=== PATIENT | male | born 1950 | race African-American/Black ===

== ENCOUNTER 2021-05-17 13:07 | Inpatient (IN) ==
[2021-05-17 14:13] LABS: Basophils % 0.2 % (0.0-0.8); Eosinophils % 0.2 % (0.00-10.9); Hematocrit 30.4 VOL% (42.0-52.0); Hemoglobin 9.4 GM/DL (14.0-18.0); Immature Granulocytes % 2.1 %; Immature Granulocytes Absolute 0.09 #; Lymphocytes # 0.6 10*3/uL (1.4-4.0); Lymphocytes % 14.3 % (21.2-54.2); Mean Corpuscular HGB Conc 30.9 GM/DL (32-36); Mean Corpuscular Volume 88.9 FL (87-102); Mean Platelet Volume 10.2 FL (9.6-12.0); Monocytes % 4.7 % (1.7-12.7); NRBC # 0.22 10*3/uL; Neutrophils % 78.5 % (38.7-73.9); Platelet Count 97 T/CUMM (130-400); Red Blood Count 3.42 MC/CUMM (3.8-5.5); Red Cell Distribution Width 19.1 % (9.3-17.3); White Blood Count 4.3 T/CUMM (4-12)
[2021-05-17 14:21] LABS: ABG HCO3 25.2 MMOL/L (20-26); ABG Oxygen Saturation 94.9 % (95-100); ABG PCO2 39.3 MM HG (35-48); ABG PH 7.418 (7.35-7.45); ABG TCO2 23.3 MMOL/L (23-27)
[2021-05-17 14:37] LABS: Anisocytosis 1+; Hypochromasia 1+
[2021-05-17 14:38] LABS: Elliptocytes Few; Platelet Estimate Decreased; Polychromasia Few
[2021-05-17 14:53] LABS: Albumin 2.4 G/DL (3.4-5.0); Bilirubin,Total 0.8 MG/DL (0.2-1.0); Calcium 8.3 MG/DL (8.5-10.1); Osmolality,Calculated 289.7 MOS/KG (273-304); Potassium 5.9 MMOL/L (3.5-5.1); Total Protein 6.1 G/DL (6.4-8.2)
[2021-05-17] MEDS ORDERED: SODIUM CHLORIDE 0.9% 500 ML IV STA (15:17)
[2021-05-17 15:28] LABS: INR 1.2
[2021-05-17] MEDS ORDERED: cefTRIAXone 1,000 MG in SODIUM CHLORIDE 0.9% 100 ML IV STA (15:35)
[2021-05-17] MEDS ORDERED: INSULIN REGULAR 10 UNIT, CALCIUM GLUCONATE 1,000 MG in DEXTROSE 10% 250 ML IV ONE (16:19)
[2021-05-17] MEDS ORDERED: ONDANSETRON 4 MG/2 ML VIAL IV PRN (16:41)
[2021-05-17] MEDS ORDERED: GLUCAGON 1 MG VIAL IM PRN (16:41)
[2021-05-17] MEDS ORDERED: ACETAMINOPHEN 325 MG TABLET PO PRN (16:41)
[2021-05-17] MEDS ORDERED: DEXTROSE 50% 25 GM/50 ML VIAL IV PRN (16:41)
[2021-05-17] MEDS ORDERED: TEMAZEPAM 15 MG CAPSULE PO PRN (16:52)
[2021-05-17] MEDS ORDERED: PANTOPRAZOLE 40 MG VIAL IV STA (16:57)
[2021-05-17 17:30] LABS: Bilirubin,Urine Negative (Negative); Blood, Urine Negative (Negative); Glucose,Urine (UA) Negative (Negative); Hyaline Casts,Urine 3 /LPF (0-3); Ketones,Urine Negative (Negative); Mucus,Urine Occasional /LPF (Occasional); Nitrite,Urine Negative (Negative); Protein,Urine 30 MG/DL; Squamous Epithelial Cell,Urine Occasional /HPF (0-10); Urine Appearance CLEAR (Clear); Urine Color Yellow (Yellow); Urine Specific Gravity 1.008 (1.001-1.035); Urine Urobilinogen < 2.0 EU/DL (0.2-1.0)
[2021-05-17] MEDS: methylPREDNISolone SOD SUC 40 MG/1 ML VIAL IV SCH (18:28)
[2021-05-17] MEDS: ALBUTEROL/IPRATROPIUM 3 ML NEB RESP TX SCH (19:00)
[2021-05-17 20:40] LABS: Hematocrit 29.7 VOL% (42.0-52.0); Hemoglobin 9.1 GM/DL (14.0-18.0)
[2021-05-17] MEDS ORDERED: ATORVASTATIN 40 MG TABLET PO SCH (21:00)
[2021-05-17] MEDS: LATANOPROST 0.005% OPH SOLN 2.5 ML BOTTLE BOTH EYES SCH (21:40)
[2021-05-17] MEDS: cycloSPORINE OPH EMUL 1 VIAL BOTH EYES SCH (21:40)
[2021-05-17] MEDS: DORZOLAMIDE 2% OPH SOLN 10 ML BOTTLE BOTH EYES SCH (21:40)
[2021-05-17] MEDS: APIXABAN 5 MG TABLET PO SCH (21:42)
[2021-05-17] MEDS: GABAPENTIN 100 MG CAPSULE PO SCH (21:42)
[2021-05-17] MEDS: carvediloL 6.25 MG TABLET PO SCH (21:42)
[2021-05-18] MEDS: ALBUTEROL/IPRATROPIUM 3 ML NEB RESP TX SCH ×4 (00:53→20:08)
[2021-05-18 01:59] LABS: Basophils % 0.3 % (0.0-0.8); Hematocrit 27.9 VOL% (42.0-52.0); Hemoglobin 8.7 GM/DL (14.0-18.0); Immature Granulocytes % 1.1 %; Immature Granulocytes Absolute 0.04 #; Lymphocytes # 0.5 10*3/uL (1.4-4.0); Lymphocytes % 14.2 % (21.2-54.2); Mean Corpuscular HGB Conc 31.2 GM/DL (32-36); Mean Corpuscular Volume 89.1 FL (87-102); Mean Platelet Volume 11.1 FL (9.6-12.0); Monocytes % 2.8 % (1.7-12.7); NRBC # 0.05 10*3/uL; Neutrophils % 81.6 % (38.7-73.9); Red Blood Count 3.13 MC/CUMM (3.8-5.5); Red Cell Distribution Width 18.7 % (9.3-17.3); White Blood Count 3.5 T/CUMM (4-12)
[2021-05-18 02:08] LABS: Platelet Count 88 T/CUMM (130-400)
[2021-05-18 02:11] LABS: Albumin 2.2 G/DL (3.4-5.0); Bilirubin,Total 0.9 MG/DL (0.2-1.0); Calcium 8.3 MG/DL (8.5-10.1); Osmolality,Calculated 295.4 MOS/KG (273-304); Potassium 4.6 MMOL/L (3.5-5.1); Total Protein 5.6 G/DL (6.4-8.2)
[2021-05-18] MEDS: methylPREDNISolone SOD SUC 40 MG/1 ML VIAL IV SCH ×3 (02:50→16:32)
[2021-05-18 07:49] LABS: Hematocrit 30.8 VOL% (42.0-52.0); Hemoglobin 9.4 GM/DL (14.0-18.0)
[2021-05-18] MEDS: LEFLUNOMIDE 10 MG TABLET PO SCH (09:02)
[2021-05-18] MEDS: DILTIAZEM CD 240 MG CAPSULE PO SCH (09:02)
[2021-05-18] MEDS: GABAPENTIN 100 MG CAPSULE PO SCH ×3 (09:02→22:48)
[2021-05-18] MEDS: DORZOLAMIDE 2% OPH SOLN 10 ML BOTTLE BOTH EYES SCH ×2 (09:03→22:49)
[2021-05-18] MEDS: SODIUM CHLORIDE 0.9% 1,000 ML IV SCH ×2 (09:03→22:50)
[2021-05-18] MEDS: PANTOPRAZOLE 40 MG TABLET PO SCH (09:03)
[2021-05-18] MEDS: carvediloL 6.25 MG TABLET PO SCH ×2 (09:03→22:48)
[2021-05-18] MEDS: APIXABAN 5 MG TABLET PO SCH ×2 (09:03→22:48)
[2021-05-18] MEDS: cycloSPORINE OPH EMUL 1 VIAL BOTH EYES SCH ×2 (09:10→22:49)
[2021-05-18 10:01] LABS: % Iron Saturation 43.8 % (18-50); Thyroid Stimulating Hormone 0.267 uIU/ml (0.358-3.74)
[2021-05-18 10:10] LABS: Folate 7.34 NG/ML (5.38-24.0); Vitamin B12 > 2000 PG/ML (211-911)
[2021-05-18] MEDS ORDERED: CYANOCOBALAMIN 1000 MCG/1 ML VIAL IM ONE (13:00)
[2021-05-18 13:44] LABS: Hematocrit 31.1 VOL% (42.0-52.0); Hemoglobin 9.6 GM/DL (14.0-18.0)
[2021-05-18] MEDS: cefTRIAXone 1,000 MG in SODIUM CHLORIDE 0.9% 100 ML IV SCH (16:32)
[2021-05-18] MEDS: LATANOPROST 0.005% OPH SOLN 2.5 ML BOTTLE BOTH EYES SCH (22:48)
[2021-05-18] MEDS: MENTHOL/ZINC OXIDE OINT 71 GM JAR TOP SCH (22:49)
[2021-05-18] MEDS: MONTELUKAST 10 MG TABLET PO SCH (22:50)
[2021-05-18] MEDS: ALPRAZolam 0.5 MG TABLET PO PRN (22:54)
[2021-05-19 01:07] LABS: Bilirubin,Urine Negative (Negative); Blood, Urine Negative (Negative); Glucose,Urine (UA) 50 mg/dL (Negative); Hyaline Casts,Urine 1 /LPF (0-3); Ketones,Urine Negative (Negative); Mucus,Urine Occasional /LPF (Occasional); Nitrite,Urine Negative (Negative); Protein,Urine Negative; RBC,Urine <1 /HPF (0-4); Uric Acid Crystals,Urine Occasional /HPF (<1); Urine Appearance CLOUDY (Clear); Urine Color Yellow (Yellow); Urine Specific Gravity 1.017 (1.001-1.035); Urine Urobilinogen < 2.0 EU/DL (0.2-1.0)
[2021-05-19] MEDS: ALBUTEROL/IPRATROPIUM 3 ML NEB RESP TX SCH ×4 (01:35→21:00)
[2021-05-19] MEDS: methylPREDNISolone SOD SUC 40 MG/1 ML VIAL IV SCH ×2 (04:33→21:41)
[2021-05-19 05:42] LABS: Hematocrit 25.4 VOL% (42.0-52.0); Immature Granulocytes % 1.3 %; Immature Granulocytes Absolute 0.05 #; Lymphocytes # 0.5 10*3/uL (1.4-4.0); Lymphocytes % 12.6 % (21.2-54.2); Mean Corpuscular HGB Conc 31.5 GM/DL (32-36); Mean Corpuscular Volume 87.3 FL (87-102); Mean Platelet Volume 12.1 FL (9.6-12.0); Monocytes % 2.1 % (1.7-12.7); NRBC # 0.13 10*3/uL; Platelet Count 64 T/CUMM (130-400); Red Blood Count 2.91 MC/CUMM (3.8-5.5); Red Cell Distribution Width 18.3 % (9.3-17.3); White Blood Count 3.7 T/CUMM (4-12)
[2021-05-19 06:27] LABS: Band Neutrophils 6 % (0-10); Lymphocytes 12 % (20-55); Nucleated Red Blood Cells 2 (0-5); Segmented Neutrophils 77 % (50-85); Total Cells Counted 100
[2021-05-19 06:28] LABS: Hypochromasia 1+; Microcytosis 1+; Ovalocytes Few
[2021-05-19 06:29] LABS: Platelet Estimate Decreased
[2021-05-19 06:30] LABS: Bilirubin,Total 0.5 MG/DL (0.2-1.0); Calcium 8.2 MG/DL (8.5-10.1); Osmolality,Calculated 295.3 MOS/KG (273-304); Potassium 4.3 MMOL/L (3.5-5.1); Total Protein 5.1 G/DL (6.4-8.2)
[2021-05-19 06:36] LABS: Free T4 (Free Thyroxine) 0.62 NG/DL (0.76-1.46); Thyroid Stimulating Hormone 0.099 uIU/ml (0.358-3.74)
[2021-05-19 07:19] LABS: Hepatitis B Core IgM Quant < 0.05 Index; Hepatitis B Surface Ag Quant < 0.10 Index; Hepatitis B Surface Ag Result Non-Reactive (NonReactive); Hepatitis C Virus Ab Quant < 0.02 Index; Hepatitis C Virus Ab Result Non-Reactive (NonReactive)
[2021-05-19] MEDS ORDERED: AZITHROMYCIN 250 MG TABLET PO SCH (09:00)
[2021-05-19] MEDS ORDERED: ALBUTEROL 2.5 MG/3 ML NEB RESP TX ONE (09:30)
[2021-05-19] MEDS: PANTOPRAZOLE 40 MG TABLET PO SCH (09:48)
[2021-05-19] MEDS: LEFLUNOMIDE 10 MG TABLET PO SCH (09:48)
[2021-05-19] MEDS: carvediloL 6.25 MG TABLET PO SCH ×2 (09:48→21:35)
[2021-05-19] MEDS: APIXABAN 5 MG TABLET PO SCH ×2 (09:49→21:35)
[2021-05-19] MEDS: GABAPENTIN 100 MG CAPSULE PO SCH ×3 (09:49→21:35)
[2021-05-19] MEDS: DILTIAZEM CD 240 MG CAPSULE PO SCH (09:49)
[2021-05-19] MEDS: DORZOLAMIDE 2% OPH SOLN 10 ML BOTTLE BOTH EYES SCH ×2 (09:50→21:57)
[2021-05-19] MEDS: cycloSPORINE OPH EMUL 1 VIAL BOTH EYES SCH ×2 (09:50→21:35)
[2021-05-19] MEDS: FOLIC ACID 1 MG TABLET PO SCH (11:50)
[2021-05-19] MEDS: cefTRIAXone 1,000 MG in SODIUM CHLORIDE 0.9% 100 ML IV SCH ×2 (11:51→17:33)
[2021-05-19] MEDS: ALBUTEROL 0.4 MG/ML 30 ML/BOTTLE PO SCH ×2 (15:02→21:41)
[2021-05-19] MEDS: MENTHOL/ZINC OXIDE OINT 71 GM JAR TOP SCH ×2 (15:03→21:36)
[2021-05-19] MEDS: INSULIN REGULAR 100 UNIT/ML SUBCUT SCH ×2 (18:11→21:40)
[2021-05-19] MEDS: MONTELUKAST 10 MG TABLET PO SCH (21:35)
[2021-05-19] MEDS: LATANOPROST 0.005% OPH SOLN 2.5 ML BOTTLE BOTH EYES SCH (21:56)
[2021-05-20] MEDS: ALBUTEROL/IPRATROPIUM 3 ML NEB RESP TX SCH ×4 (00:34→19:43)
[2021-05-20 06:15] LABS: Hematocrit 25.4 VOL% (42.0-52.0); Hemoglobin 7.8 GM/DL (14.0-18.0); Immature Granulocytes % 1.8 %; Immature Granulocytes Absolute 0.08 #; Lymphocytes # 0.5 10*3/uL (1.4-4.0); Lymphocytes % 10.2 % (21.2-54.2); Mean Corpuscular HGB Conc 30.7 GM/DL (32-36); Mean Corpuscular Volume 89.4 FL (87-102); Mean Platelet Volume 11.5 FL (9.6-12.0); NRBC # 0.19 10*3/uL; Platelet Count 95 T/CUMM (130-400); Red Blood Count 2.84 MC/CUMM (3.8-5.5); Red Cell Distribution Width 18.5 % (9.3-17.3); White Blood Count 4.4 T/CUMM (4-12)
[2021-05-20 06:24] LABS: Bilirubin,Total 0.7 MG/DL (0.2-1.0); Calcium 7.9 MG/DL (8.5-10.1); Osmolality,Calculated 297.1 MOS/KG (273-304); Potassium 4.4 MMOL/L (3.5-5.1); Total Protein 5.2 G/DL (6.4-8.2)
[2021-05-20 06:25] LABS: Risk Ratio 3.28; VLDL Cholesterol 37.6 MG/DL
[2021-05-20] MEDS: LEVOTHYROXINE 50 MCG TABLET PO SCH (07:11)
[2021-05-20 08:55] LABS: Anisocytosis 1+; Band Neutrophils 15 % (0-10); Lymphocytes 6 % (20-55); Nucleated Red Blood Cells 9 (0-5); Platelet Estimate Decreased; Polychromasia Slight; Segmented Neutrophils 76 % (50-85); Tear Drop Cells Few; Total Cells Counted 100
[2021-05-20 08:56] LABS: Hypochromasia Slight; Macrocytosis 1+; Poikilocytosis Slight
[2021-05-20] MEDS: carvediloL 6.25 MG TABLET PO SCH ×2 (10:02→20:33)
[2021-05-20] MEDS: GABAPENTIN 100 MG CAPSULE PO SCH ×3 (10:02→20:33)
[2021-05-20] MEDS: LEFLUNOMIDE 10 MG TABLET PO SCH (10:03)
[2021-05-20] MEDS: methylPREDNISolone SOD SUC 40 MG/1 ML VIAL IV SCH ×2 (10:03→17:17)
[2021-05-20] MEDS: DILTIAZEM CD 240 MG CAPSULE PO SCH (10:03)
[2021-05-20] MEDS: MENTHOL/ZINC OXIDE OINT 71 GM JAR TOP SCH ×2 (10:04→20:35)
[2021-05-20] MEDS: INSULIN REGULAR 100 UNIT/ML SUBCUT SCH ×4 (10:04→20:32)
[2021-05-20] MEDS: APIXABAN 5 MG TABLET PO SCH (10:05)
[2021-05-20] MEDS: FOLIC ACID 1 MG TABLET PO SCH (10:05)
[2021-05-20] MEDS: ALBUTEROL 0.4 MG/ML 30 ML/BOTTLE PO SCH ×3 (10:06→20:34)
[2021-05-20] MEDS: cycloSPORINE OPH EMUL 1 VIAL BOTH EYES SCH ×2 (10:06→20:33)
[2021-05-20] MEDS: DORZOLAMIDE 2% OPH SOLN 10 ML BOTTLE BOTH EYES SCH ×2 (10:07→20:31)
[2021-05-20] MEDS ORDERED: FUROSEMIDE 40 MG/4 ML VIAL IV PRN (11:57)
[2021-05-20] MEDS ORDERED: SODIUM CHLORIDE 0.9% 1,000 ML IV PRN (11:57)
[2021-05-20] MEDS: LATANOPROST 0.005% OPH SOLN 2.5 ML BOTTLE BOTH EYES SCH (20:31)
[2021-05-20] MEDS: MONTELUKAST 10 MG TABLET PO SCH (20:33)
[2021-05-21] MEDS: ALBUTEROL/IPRATROPIUM 3 ML NEB RESP TX SCH ×4 (00:05→19:15)
[2021-05-21] MEDS: methylPREDNISolone SOD SUC 40 MG/1 ML VIAL IV SCH ×3 (02:28→18:14)
[2021-05-21] MEDS: LEVOTHYROXINE 50 MCG TABLET PO SCH (05:53)
[2021-05-21 07:11] LABS: Basophils % 0.2 % (0.0-0.8); Hematocrit 31.5 VOL% (42.0-52.0); Hemoglobin 10.3 GM/DL (14.0-18.0); Immature Granulocytes Absolute 0.11 #; Lymphocytes # 0.6 10*3/uL (1.4-4.0); Lymphocytes % 10.7 % (21.2-54.2); Mean Corpuscular HGB Conc 32.7 GM/DL (32-36); Mean Corpuscular Volume 86.8 FL (87-102); Mean Platelet Volume 11.8 FL (9.6-12.0); Monocytes % 3.1 % (1.7-12.7); NRBC # 0.23 10*3/uL; Red Blood Count 3.63 MC/CUMM (3.8-5.5); Red Cell Distribution Width 17.4 % (9.3-17.3); White Blood Count 5.4 T/CUMM (4-12)
[2021-05-21 07:14] LABS: Platelet Count 80 T/CUMM (130-400)
[2021-05-21 07:32] LABS: Albumin 2.2 G/DL (3.4-5.0); Bilirubin,Total 0.7 MG/DL (0.2-1.0); Calcium 7.8 MG/DL (8.5-10.1); Osmolality,Calculated 288.7 MOS/KG (273-304); Potassium 4.4 MMOL/L (3.5-5.1); Total Protein 5.5 G/DL (6.4-8.2)
[2021-05-21 07:33] LABS: Hypochromasia Slight; Microcytosis Slight; Ovalocytes Slight; Platelet Estimate Decreased
[2021-05-21] MEDS: DORZOLAMIDE 2% OPH SOLN 10 ML BOTTLE BOTH EYES SCH ×2 (09:39→20:43)
[2021-05-21] MEDS: DILTIAZEM CD 240 MG CAPSULE PO SCH (09:39)
[2021-05-21] MEDS: ALBUTEROL 0.4 MG/ML 30 ML/BOTTLE PO SCH ×3 (09:39→20:44)
[2021-05-21] MEDS: FOLIC ACID 1 MG TABLET PO SCH (09:40)
[2021-05-21] MEDS: carvediloL 6.25 MG TABLET PO SCH (09:40)
[2021-05-21] MEDS: GABAPENTIN 100 MG CAPSULE PO SCH ×3 (09:41→20:42)
[2021-05-21] MEDS: LEFLUNOMIDE 10 MG TABLET PO SCH (09:42)
[2021-05-21] MEDS: cycloSPORINE OPH EMUL 1 VIAL BOTH EYES SCH ×2 (09:42→20:46)
[2021-05-21] MEDS: MENTHOL/ZINC OXIDE OINT 71 GM JAR TOP SCH ×2 (09:42→20:43)
[2021-05-21] MEDS: INSULIN REGULAR 100 UNIT/ML SUBCUT SCH ×4 (09:44→20:42)
[2021-05-21] MEDS ORDERED: MAGNESIUM SULF RIDER 4 GM/100 ML PREMIX IV PRN (11:02)
[2021-05-21] MEDS ORDERED: MAGNESIUM SULF RIDER 2 GM/50 ML PREMIX IV PRN (11:02)
[2021-05-21] MEDS: FUROSEMIDE 40 MG/4 ML VIAL IV SCH (12:37)
[2021-05-21] MEDS: MONTELUKAST 10 MG TABLET PO SCH (20:42)
[2021-05-21] MEDS: BUDESONIDE/FORMOTEROL 160-4.5 INHALER 6 GM INH SCH (20:46)
[2021-05-21] MEDS: LATANOPROST 0.005% OPH SOLN 2.5 ML BOTTLE BOTH EYES SCH (20:46)
[2021-05-21] MEDS: traMADol 50 MG TABLET PO PRN (20:49)
[2021-05-21] MEDS: ALPRAZolam 0.5 MG TABLET PO PRN (20:49)
[2021-05-21] MEDS ORDERED: METOPROLOL TARTRATE 25 MG TABLET PO SCH (21:00)
[2021-05-22] MEDS: ALBUTEROL/IPRATROPIUM 3 ML NEB RESP TX SCH ×6 (00:06→19:26)
[2021-05-22] MEDS: methylPREDNISolone SOD SUC 40 MG/1 ML VIAL IV SCH ×3 (01:16→17:05)
[2021-05-22 04:56] LABS: Basophils % 0.2 % (0.0-0.8); Hematocrit 32.4 VOL% (42.0-52.0); Hemoglobin 10.6 GM/DL (14.0-18.0); Immature Granulocytes % 3.3 %; Immature Granulocytes Absolute 0.17 #; Lymphocytes # 0.5 10*3/uL (1.4-4.0); Lymphocytes % 10.2 % (21.2-54.2); Mean Corpuscular HGB Conc 32.7 GM/DL (32-36); Mean Corpuscular Volume 87.3 FL (87-102); Mean Platelet Volume 12.1 FL (9.6-12.0); Monocytes % 5.2 % (1.7-12.7); Neutrophils % 81.1 % (38.7-73.9); Platelet Count 68 T/CUMM (130-400); Red Blood Count 3.71 MC/CUMM (3.8-5.5); Red Cell Distribution Width 17.4 % (9.3-17.3); White Blood Count 5.2 T/CUMM (4-12)
[2021-05-22] MEDS ORDERED: METOPROLOL TARTRATE 25 MG TABLET PO ONE (05:00)
[2021-05-22 05:18] LABS: Albumin 2.2 G/DL (3.4-5.0); Bilirubin,Total 0.6 MG/DL (0.2-1.0); Calcium 7.6 MG/DL (8.5-10.1); Osmolality,Calculated 293.5 MOS/KG (273-304); Potassium 3.5 MMOL/L (3.5-5.1); Total Protein 5.5 G/DL (6.4-8.2)
[2021-05-22] MEDS: LEVOTHYROXINE 50 MCG TABLET PO SCH (05:30)
[2021-05-22 05:36] LABS: Hypochromasia Slight; Microcytosis Slight; Platelet Estimate Decreased
[2021-05-22] MEDS: GABAPENTIN 100 MG CAPSULE PO SCH ×3 (09:45→22:30)
[2021-05-22] MEDS: LEFLUNOMIDE 10 MG TABLET PO SCH (09:46)
[2021-05-22] MEDS: METOPROLOL TARTRATE 25 MG TABLET PO SCH ×2 (09:46→22:30)
[2021-05-22] MEDS: FOLIC ACID 1 MG TABLET PO SCH (09:46)
[2021-05-22] MEDS: DILTIAZEM CD 240 MG CAPSULE PO SCH (09:46)
[2021-05-22] MEDS: ALBUTEROL 0.4 MG/ML 30 ML/BOTTLE PO SCH ×3 (09:47→22:32)
[2021-05-22] MEDS: DORZOLAMIDE 2% OPH SOLN 10 ML BOTTLE BOTH EYES SCH ×2 (09:47→22:31)
[2021-05-22] MEDS: MENTHOL/ZINC OXIDE OINT 71 GM JAR TOP SCH ×2 (09:48→22:48)
[2021-05-22] MEDS: BUDESONIDE/FORMOTEROL 160-4.5 INHALER 6 GM INH SCH ×2 (09:49→22:33)
[2021-05-22] MEDS: INSULIN REGULAR 100 UNIT/ML SUBCUT SCH ×4 (09:49→22:27)
[2021-05-22] MEDS: FUROSEMIDE 40 MG/4 ML VIAL IV SCH (09:50)
[2021-05-22] MEDS: cycloSPORINE OPH EMUL 1 VIAL BOTH EYES SCH ×2 (09:51→22:31)
[2021-05-22] MEDS: MONTELUKAST 10 MG TABLET PO SCH (22:29)
[2021-05-22] MEDS: LATANOPROST 0.005% OPH SOLN 2.5 ML BOTTLE BOTH EYES SCH (22:31)
[2021-05-22] MEDS: ALPRAZolam 0.5 MG TABLET PO PRN (22:41)
[2021-05-23] MEDS: ALBUTEROL/IPRATROPIUM 3 ML NEB RESP TX SCH ×6 (00:34→20:38)
[2021-05-23] MEDS: methylPREDNISolone SOD SUC 40 MG/1 ML VIAL IV SCH ×3 (01:22→16:12)
[2021-05-23 04:42] LABS: Basophils % 0.2 % (0.0-0.8); Hematocrit 31.5 VOL% (42.0-52.0); Hemoglobin 10.5 GM/DL (14.0-18.0); Immature Granulocytes % 4.2 %; Immature Granulocytes Absolute 0.23 #; Lymphocytes # 0.5 10*3/uL (1.4-4.0); Lymphocytes % 8.6 % (21.2-54.2); Mean Corpuscular HGB Conc 33.3 GM/DL (32-36); Mean Corpuscular Volume 86.1 FL (87-102); Monocytes % 4.4 % (1.7-12.7); NRBC # 0.19 10*3/uL; Neutrophils % 82.6 % (38.7-73.9); Platelet Count 53 T/CUMM (130-400); Red Blood Count 3.66 MC/CUMM (3.8-5.5); Red Cell Distribution Width 17.4 % (9.3-17.3); White Blood Count 5.5 T/CUMM (4-12)
[2021-05-23 05:05] LABS: Hypochromasia Slight; Microcytosis Slight; Platelet Estimate Decreased
[2021-05-23 05:23] LABS: Calcium 7.3 MG/DL (8.5-10.1); Osmolality,Calculated 294.5 MOS/KG (273-304)
[2021-05-23 05:26] LABS: Albumin 2.1 G/DL (3.4-5.0); Bilirubin,Total 1.2 MG/DL (0.2-1.0); Calcium 7.2 MG/DL (8.5-10.1); Osmolality,Calculated 290.8 MOS/KG (273-304); Potassium 4.2 MMOL/L (3.5-5.1); Total Protein 5.4 G/DL (6.4-8.2)
[2021-05-23] MEDS: LEVOTHYROXINE 50 MCG TABLET PO SCH (06:31)
[2021-05-23] MEDS ORDERED: LACTATED RINGERS 1,000 ML IV SCH (07:45)
[2021-05-23] MEDS ORDERED: hydrALAZINE 20 MG/1 ML VIAL ONE (08:12)
[2021-05-23] MEDS: INSULIN REGULAR 100 UNIT/ML SUBCUT SCH ×4 (08:31→20:44)
[2021-05-23] MEDS ORDERED: GLYCOPYRROLATE 0.4 MG/2 ML VIAL ONE (08:51)
[2021-05-23] MEDS ORDERED: propofoL 200 MG/20 ML VIAL IV ONE (08:51)
[2021-05-23] MEDS ORDERED: LIDOCAINE 100 MG/5 ML SYRINGE ONE (08:51)
[2021-05-23] MEDS: ALPRAZolam 0.5 MG TABLET PO PRN ×2 (10:13→20:49)
[2021-05-23] MEDS: METOPROLOL TARTRATE 25 MG TABLET PO SCH ×2 (10:13→20:44)
[2021-05-23] MEDS: DILTIAZEM CD 240 MG CAPSULE PO SCH (10:14)
[2021-05-23] MEDS: cycloSPORINE OPH EMUL 1 VIAL BOTH EYES SCH ×2 (10:14→20:49)
[2021-05-23] MEDS: FOLIC ACID 1 MG TABLET PO SCH (10:14)
[2021-05-23] MEDS: GABAPENTIN 100 MG CAPSULE PO SCH ×3 (10:14→20:44)
[2021-05-23] MEDS: ALBUTEROL 0.4 MG/ML 30 ML/BOTTLE PO SCH ×3 (10:15→21:07)
[2021-05-23] MEDS: BUDESONIDE/FORMOTEROL 160-4.5 INHALER 6 GM INH SCH ×2 (10:16→20:43)
[2021-05-23] MEDS: DORZOLAMIDE 2% OPH SOLN 10 ML BOTTLE BOTH EYES SCH ×2 (10:16→20:43)
[2021-05-23] MEDS: MENTHOL/ZINC OXIDE OINT 71 GM JAR TOP SCH ×2 (10:19→20:43)
[2021-05-23] MEDS: LEFLUNOMIDE 10 MG TABLET PO SCH (10:32)
[2021-05-23] MEDS: MONTELUKAST 10 MG TABLET PO SCH (20:44)
[2021-05-23] MEDS: traMADol 50 MG TABLET PO PRN (20:48)
[2021-05-23] MEDS: LATANOPROST 0.005% OPH SOLN 2.5 ML BOTTLE BOTH EYES SCH (20:49)
[2021-05-24] MEDS: ALBUTEROL/IPRATROPIUM 3 ML NEB RESP TX SCH ×5 (00:31→20:10)
[2021-05-24] MEDS: methylPREDNISolone SOD SUC 40 MG/1 ML VIAL IV SCH ×2 (01:15→09:31)
[2021-05-24 05:38] LABS: Basophils % 0.3 % (0.0-0.8); Hematocrit 32.7 VOL% (42.0-52.0); Hemoglobin 10.6 GM/DL (14.0-18.0); Immature Granulocytes % 4.2 %; Immature Granulocytes Absolute 0.24 #; Lymphocytes # 0.4 10*3/uL (1.4-4.0); Lymphocytes % 6.4 % (21.2-54.2); Mean Corpuscular HGB Conc 32.4 GM/DL (32-36); Mean Corpuscular Volume 86.7 FL (87-102); Mean Platelet Volume 11.5 FL (9.6-12.0); Monocytes % 4.7 % (1.7-12.7); NRBC # 0.17 10*3/uL; Neutrophils % 84.4 % (38.7-73.9); Platelet Count 57 T/CUMM (130-400); Red Blood Count 3.77 MC/CUMM (3.8-5.5); Red Cell Distribution Width 17.6 % (9.3-17.3); White Blood Count 5.8 T/CUMM (4-12)
[2021-05-24] MEDS: LEVOTHYROXINE 50 MCG TABLET PO SCH (05:40)
[2021-05-24 06:03] LABS: Anisocytosis 2+; Macrocytosis 1+; Platelet Estimate Decreased; Poikilocytosis 1+; Polychromasia Slight
[2021-05-24 06:07] LABS: Albumin 2.3 G/DL (3.4-5.0); Calcium 7.6 MG/DL (8.5-10.1); Osmolality,Calculated 293.5 MOS/KG (273-304); Potassium 3.5 MMOL/L (3.5-5.1); Total Protein 5.2 G/DL (6.4-8.2)
[2021-05-24] MEDS: MENTHOL/ZINC OXIDE OINT 71 GM JAR TOP SCH (09:28)
[2021-05-24] MEDS: BUDESONIDE/FORMOTEROL 160-4.5 INHALER 6 GM INH SCH (09:28)
[2021-05-24] MEDS: DORZOLAMIDE 2% OPH SOLN 10 ML BOTTLE BOTH EYES SCH (09:29)
[2021-05-24] MEDS: INSULIN REGULAR 100 UNIT/ML SUBCUT SCH ×3 (09:30→17:53)
[2021-05-24] MEDS: FOLIC ACID 1 MG TABLET PO SCH (09:32)
[2021-05-24] MEDS: METOPROLOL TARTRATE 25 MG TABLET PO SCH (09:32)
[2021-05-24] MEDS: DILTIAZEM CD 240 MG CAPSULE PO SCH (09:33)
[2021-05-24] MEDS: GABAPENTIN 100 MG CAPSULE PO SCH ×2 (09:33→16:46)
[2021-05-24] MEDS: cycloSPORINE OPH EMUL 1 VIAL BOTH EYES SCH (09:36)
[2021-05-24] MEDS: ALBUTEROL 0.4 MG/ML 30 ML/BOTTLE PO SCH ×2 (10:53→16:46)
[2021-05-24 11:17] VITALS: BP 181/90
== END 2021-05-24 16:45 | disposition home health service (06) | DRG 682 ==
LOC: N.ED 13:07 → N.EDINP 16:20 → SUATTDRO 16:20 → N.5E 17:48
PROVIDERS: ADMIT Internal Medicine; ATTEND Internal Medicine